=== PATIENT | female | born 1930 | race Caucasian/White ===

== ENCOUNTER 2016-08-29 15:02 | Inpatient (IN) | payer MEDICARE ==
[2016-08-29 15:16] LABS: CARBON DIOXIDE-VENOUS 28 mmol/L (21-33); CREATININE 0.59 mg/dl (0.67-1.17); GLUCOSE 305 mg/dl (65-120); SODIUM 134 mmol/L (135-146); eGFR VALUE FOR BLACK >90 mL/Min
[2016-08-29] MEDS ORDERED: XALATAN2.5 M1 OP (15:18)
[2016-08-29] MEDS ORDERED: BYSTOLIC10 M1 PO (15:18)
[2016-08-29 15:19] LABS: PROTHROMBIN TIME 11.8 SECONDS (9.0-13.6)
[2016-08-29 15:20] LABS: BASO % 0.1 % (0-2); EOS % 0.1 % (0-7); HCT-HEMATOCRIT 39.8 % (34.0-49.0); HGB-HEMOGLOBIN 13.1 gm/dl (12.0-15.5); IMMATURE GRANULOCYTES ABSOLUTE 0.06 tho/cmm (0-0.03); IMMATURE GRANULOCYTES PERCENT 0.4 % (0-0.3); LYMPH % 8.8 % (20-45); LYMPH ABSOLUTE COUNT 1.4 tho/cmm (0.8-4.5); MCH (MEAN CORPUSCULAR HGB) 30.7 pg (28.0-32.0); MCHC MEAN CORPUSCULAR HGB CONC 32.9 % (32.0-36.0); MCV (MEAN CELL VOLUME) 93.2 fl (82.0-96.0); MEAN PLATELET VOLUME 9.8 cmc (9.4-12.4); MONO % 0.6 % (0-12); MONOCYTE ABSOLUTE COUNT 0.1 tho/cmm (0.0-1.2); NEUTROPHIL ABSOLUTE COUNT 13.9 tho/cmm (1.6-8.0); NEUTROPHIL-AUTOMATED 13.9 tho/cmm (1.6-8.0); PLATELET COUNT 190 tho/cmm (150-450); RED BLOOD COUNT 4.27 mil/cmm (4.00-5.20); RED CELL DISTRIBUTION WIDTH 14.6 % (12.4-16.4); WHITE BLOOD COUNT 15.5 tho/cmm (4.0-10.0)
[2016-08-29 15:33] LABS: ALB/GLOB RATIO 0.8 (0.8-2.0); ALBUMIN 3.4 g/dl (3.5-5.0); ALKALINE PHOSPHATASE 114 U/L (33-138); ALT/SGPT 14 U/L (12-78); AST/SGOT 17 U/L (10-40); BILIRUBIN,TOTAL 0.3 mg/dl (0-1.5); BLOOD UREA NITROGEN 9 mg/dl (6-24); CALCIUM 8.3 mg/dl (8.5-10.5); CHLORIDE 100 mmol/l (96-110)
[2016-08-29 15:34] LABS: ANION GAP 10 mmol/L (0-20)
[2016-08-29] MEDS ORDERED: ATROPINE SULF IVP (15:35)
[2016-08-29] MEDS ORDERED: SOLU-MEDRO125 MG/23 IV ×2 (15:36→19:06)
[2016-08-29 15:40] LABS: ESR-ERYTHROCYTE SED RATE 12 mm/hr (0-30)
[2016-08-29] MEDS ORDERED: FLUOROURAC500 MG/10 IV (18:59)
[2016-08-29] MEDS ORDERED: IRINOTECAN IV (18:59)
[2016-08-29] MEDS ORDERED: LEUCOVORIN CAL200 MG IV (19:00)
[2016-08-29] MEDS ORDERED: ALOXI0.25 MG/5 IV (19:01)
[2016-08-29] MEDS ORDERED: EMEND150 MG IV (19:02)
[2016-08-29] MEDS ORDERED: DEXAMETHAS10 MG/1 M1 IV (19:02)
[2016-08-29] MEDS ORDERED: MEDROL4 M1 (19:04)
[2016-08-30 06:39] LABS: HCT-HEMATOCRIT 35.3 % (34.0-49.0); HGB-HEMOGLOBIN 11.6 gm/dl (12.0-15.5); IMMATURE GRANULOCYTES ABSOLUTE 0.01 tho/cmm (0-0.03); IMMATURE GRANULOCYTES PERCENT 0.2 % (0-0.3); LYMPH % 13.9 % (20-45); LYMPH ABSOLUTE COUNT 0.8 tho/cmm (0.8-4.5); MCH (MEAN CORPUSCULAR HGB) 30.4 pg (28.0-32.0); MCHC MEAN CORPUSCULAR HGB CONC 32.9 % (32.0-36.0); MCV (MEAN CELL VOLUME) 92.4 fl (82.0-96.0); MEAN PLATELET VOLUME 9.5 cmc (9.4-12.4); MONO % 0.4 % (0-12); NEUTROPHIL ABSOLUTE COUNT 4.9 tho/cmm (1.6-8.0); NEUTROPHIL-AUTOMATED 4.9 tho/cmm (1.6-8.0); NEUTROPHILS % 85.5 % (40-80); PLATELET COUNT 169 tho/cmm (150-450); RED BLOOD COUNT 3.82 mil/cmm (4.00-5.20); RED CELL DISTRIBUTION WIDTH 14.5 % (12.4-16.4)
[2016-08-30 06:41] LABS: WHITE BLOOD COUNT 5.7 tho/cmm (4.0-10.0)
[2016-08-30 06:54] LABS: ALB/GLOB RATIO 0.7 (0.8-2.0); ALBUMIN 2.8 g/dl (3.5-5.0); ALKALINE PHOSPHATASE 91 U/L (33-138); ALT/SGPT 12 U/L (12-78); ANION GAP 13 mmol/L (0-20); AST/SGOT 13 U/L (10-40); BILIRUBIN,TOTAL 0.4 mg/dl (0-1.5); BLOOD UREA NITROGEN 11 mg/dl (6-24); CALCIUM 8.3 mg/dl (8.5-10.5); CARBON DIOXIDE-VENOUS 25 mmol/L (22-32); CHLORIDE 106 mmol/l (96-110); CREATININE 0.57 mg/dl (0.50-1.10); GLUCOSE 166 mg/dL (70-110); POTASSIUM 4.2 mmol/L (3.7-5.1); SODIUM 140 mmol/L (135-145); eGFR VALUE FOR BLACK >90 mL/Min
[2016-08-30] MEDS ORDERED: FLUOROURAC500 MG/10 IV (16:10)
[2016-08-30] MEDS ORDERED: ALOXI0.25 MG/5 IV (16:10)
[2016-08-30] MEDS ORDERED: IRINOTECAN IV (16:10)
[2016-08-30] MEDS ORDERED: DEXAMETHAS10 MG/1 M1 IV (16:10)
[2016-08-30] MEDS ORDERED: EMEND150 MG IV (16:10)
[2016-08-30] MEDS ORDERED: LEUCOVORIN CAL200 MG IV (16:10)
[2016-08-30] MEDS ORDERED: ATROPINE S0.4 MG/1 M SC (16:13)
[2016-08-30] MEDS ORDERED: NEULASTA6 MG/0.6 M SC ×2 (16:13→16:20)
[2016-08-31] MEDS ORDERED: TYLENOL325 M2 PO (17:00)
[2016-08-31] MEDS ORDERED: DEXAMETHASONE4 M1 PO (17:02)
[2016-08-31] MEDS ORDERED: OMEPRAZOLE20 M3 PO (17:03)
[2016-08-31] MEDS ORDERED: KEPPRA500 M3 PO (17:03)
== END 2016-08-31 18:15 | DRG 375 ==
LOC: EDMED 15:02 → EMR2 15:46 → 5WF 18:00
PROVIDERS: Emergency Medicine; Internal Medicine Medical Oncology; ADMIT Internal Medicine Medical Oncology
DX: C20 Malignant neoplasm of rectum (principal); C78.7 Secondary malignant neoplasm of liver and intrahepatic bile duct; C78.00 Secondary malignant neoplasm of unspecified lung; C79.31 Secondary malignant neoplasm of brain; I10 Essential (primary) hypertension; R56.9 Unspecified convulsions
CPT/HCPCS: A9577; J1100; J1650; J1815; J1953; J2505; J7030